=== PATIENT | male | born 1945 | race Caucasian/White ===

== ENCOUNTER 2024-04-09 00:22 | Inpatient (IN) | payer MEDICARE ==
[~2024-04-09] VITALS: Ht 167.6 cm; Wt 66.9 kg
[2024-04-09 01:36] LABS: BASOPHILS % 0.7 % (0.0-2.0); EOSINOPHILS % 0.2 % (0.0-5.0); HEMATOCRIT. 39.6 % (42.0-52.0); HEMOGLOBIN. 13.2 g/dL (14.0-18.0); LYMPHOCYTES % 10.7 % (20.0-50.0); MEAN CORPUSCULAR HEMOGLOBIN 30.6 pg (28.0-32.0); MEAN CORPUSCULAR HGB CONC 33.4 g/dL (31.0-37.0); MEAN CORPUSCULAR VOLUME 91.4 fL (80.0-94.0); MEAN PLATELET VOLUME 8.4 fl (7.4-10.4); MONOCYTES % 10.5 % (2.0-8.0); NEUTROPHILS % 77.9 % (40.0-76.0); PLATELET 343 x1000/uL (130-400); RED BLOOD CELL COUNT 4.34 mill/uL (4.7-6.1); RED CELL DISTRIBUTION WIDTH 14.5 % (11.6-14.6); WHITE BLOOD COUNT 9.2 x1000/uL (4.5-11.0)
[2024-04-09 01:42] LABS: CHLORIDE 97 mEq/L (98-107); POTASSIUM 4.3 mEq/L (3.5-5.1); SODIUM 133 mEq/L (136-145)
[2024-04-09 01:43] LABS: CALCIUM 9.3 mg/dL (8.7-10.4); CARBON DIOXIDE 28 mEq/L (21-32)
[2024-04-09 01:48] LABS: CREATININE 0.9 mg/dL (0.6-1.3); GLUCOSE 124 mg/dL (70-105); UREA NITROGEN BLOOD 16 mg/dL (9-23)
[2024-04-09 01:50] LABS: TROPONIN I HIGH SENSITIVITY 5 ng/L (3.0-53)
[2024-04-09 04:13] LABS: PROTHROMBIN TIME 11.2 sec (9.6-11.0)
[2024-04-09] MEDS: MORPHINE SULFATE 4 MG/ML INJ (FOR IV/IM USE) IV ONE (04:30)
[2024-04-09] MEDS: ENOXAPARIN 80MG/0.8ML SYR SUBCUT NR (04:32)
[2024-04-09] MEDS: IOHEXOL-350 100 ML BOTTLE ONE (06:20)
[2024-04-09] MEDS ORDERED: DOCUSATE SODIUM 100MG CAPSULE PO PRN (08:15)
[2024-04-09] MEDS ORDERED: ACETAMINOPHEN 325MG TABLET PO PRN (08:15)
[2024-04-09] MEDS ORDERED: CLONIDINE 0.1MG TABLET PO PRN (08:15)
[2024-04-09] MEDS ORDERED: IPRATROPIUM/ALBUTEROL 0.5-3(2.5)MG/3ML NEB HHN PRN (08:15)
[2024-04-09] MEDS ORDERED: GUAIFENESIN 200MG/10ML SUGAR FREE UDC PO PRN (08:15)
[2024-04-09] MEDS ORDERED: MAGNESIUM/ALUMINUM HYDROXIDE/SIMETHICONE 30ML UDC PO PRN (08:15)
[2024-04-09] MEDS ORDERED: NITROGLYCERIN 0.4MG TABLET SL SL PRN (08:45)
[2024-04-09] MEDS ORDERED: ZOLPIDEM TARTRATE 5MG TABLET PO PRN (08:45)
[2024-04-09 09:00] VITALS: BP 148/76; PULSE 84; RESP 21; RESP 28; TEMP 98.2; TEMP 98.6
[2024-04-09 12:00] VITALS: BP 122/66; PULSE 100; RESP 32; TEMP 98.5
[2024-04-09] MEDS: MEROPENEM 1G/100ML 100 ML IV SCH (12:29)
[2024-04-09] MEDS: VANCOMYCIN 1.25GM PMX (XELLIA) 250 ML IV SCH (12:29)
[2024-04-09] MEDS: FAMOTIDINE 20MG TABLET PO SCH (12:31)
[2024-04-09] MEDS: ASPIRIN 81MG EC TABLET PO SCH (12:31)
[2024-04-09 12:44] LABS: CLARITY URINE TURBID (CLEAR); COLOR URINE YELLOW (YELLOW); GLUCOSE URINE NEGATIVE (NEGATIVE); KETONES URINE NEGATIVE (NEGATIVE); LEUKOCYTE ESTERASE URINE 3+ (NEGATIVE); NITRITE URINE NEGATIVE (NEGATIVE); OCCULT BLOOD URINE 2+ (NEGATIVE); PH URINE 7.5 (4.5-8.0); PROTEIN URINE 2+ (NEGATIVE); SPECIFIC GRAVITY URINE 1.031 (1.005-1.030); UROBILINOGEN URINE 0.2 E.U./dL (0.2-1.0)
[2024-04-09 12:58] LABS: WBC URINE TNTC /hpf (0-2)
[2024-04-09 13:02] LABS: BACTERIA URINE 4+; RBC URINE 15-25 /hpf (0-2); SQUAMOUS EPITHELIAL CELL URINE NONE SEEN /lpf (RARE/1+); YEAST URINE NONE SEEN
[2024-04-09 13:28] LABS: *AMPHETAMINES SCREEN URINE NEGATIVE (NEGATIVE); *BARBITURATES SCREEN URINE NEGATIVE (NEGATIVE); *BENZODIAZEPINES SCREEN URINE NEGATIVE (NEGATIVE); *COCAINE SCREEN URINE NEGATIVE (NEGATIVE); METHADONE URINE SCREEN NEGATIVE (NEGATIVE); OPIATES URINE SCREEN PRESUMPTIVE POSITIVE (NEGATIVE)
[2024-04-09 13:29] LABS: CANNABINOID URINE SCREEN NEGATIVE (NEGATIVE); ECSTASY MDMA SCREEN URINE NEGATIVE (NEGATIVE); PHENCYCLIDINE URINE SCREEN NEGATIVE (NEGATIVE)
[2024-04-09 16:00] VITALS: BP 155/74; PULSE 66; RESP 20; TEMP 97.6
[2024-04-09 16:25] LABS: CREATINE KINASE 236 IU/L (46-171)
[2024-04-09 16:26] LABS: CREATINE KINASE MB FRACTION 6.3 ng/mL (0.5-3.6); TROPONIN I HIGH SENSITIVITY 6 ng/L (3.0-53)
[2024-04-09 20:00] VITALS: BP 138/69; PULSE 88; RESP 22; TEMP 98
[2024-04-09] MEDS: ENOXAPARIN 40MG/0.4ML SYR SUBCUT SCH (20:43)
[2024-04-10] VITALS: BP 146/70; PULSE 95; TEMP 97.8
[2024-04-10] MEDS: MEROPENEM 1G/100ML 100 ML IV SCH (00:40)
[2024-04-10 00:58] LABS: CREATINE KINASE MB FRACTION 5.8 ng/mL (0.5-3.6)
[2024-04-10 04:00] VITALS: BP 106/51; PULSE 86; RESP 17; TEMP 98.1
[2024-04-10 06:26] LABS: BASOPHILS % 1.2 % (0.0-2.0); EOSINOPHILS % 4.1 % (0.0-5.0); HEMATOCRIT. 33.9 % (42.0-52.0); HEMOGLOBIN. 11.6 g/dL (14.0-18.0); LYMPHOCYTES % 18.7 % (20.0-50.0); MEAN CORPUSCULAR HEMOGLOBIN 31.1 pg (28.0-32.0); MEAN CORPUSCULAR HGB CONC 34.1 g/dL (31.0-37.0); MEAN CORPUSCULAR VOLUME 91.3 fL (80.0-94.0); MEAN PLATELET VOLUME 9.5 fl (7.4-10.4); MONOCYTES % 11.5 % (2.0-8.0); NEUTROPHILS % 64.5 % (40.0-76.0); PLATELET 230 x1000/uL (130-400); RED BLOOD CELL COUNT 3.72 mill/uL (4.7-6.1); RED CELL DISTRIBUTION WIDTH 14.6 % (11.6-14.6); WHITE BLOOD COUNT 7.8 x1000/uL (4.5-11.0)
[2024-04-10 06:41] LABS: CARBON DIOXIDE 26 mEq/L (21-32); CHLORIDE 106 mEq/L (98-107); POTASSIUM 4.3 mEq/L (3.5-5.1); SODIUM 137 mEq/L (136-145)
[2024-04-10 06:42] LABS: CALCIUM 8.8 mg/dL (8.7-10.4)
[2024-04-10] MEDS: VANCOMYCIN 750MG PREMIX 150 ML IV SCH (06:44)
[2024-04-10 06:46] LABS: CREATININE 0.6 mg/dL (0.6-1.3)
[2024-04-10 06:47] LABS: GLUCOSE 86 mg/dL (70-105); UREA NITROGEN BLOOD 10 mg/dL (9-23)
[2024-04-10 06:51] LABS: T4 FREE 1.26 ng/dL (0.89-1.76); THYROID STIMULATING HORMONE 1.34 uIU/mL (0.55-4.78)
[2024-04-10 08:00] VITALS: BP 103/57; PULSE 70; RESP 23; TEMP 98.3
[2024-04-10] MEDS: ACETAMINOPHEN 325MG TABLET PO PRN (09:27)
[2024-04-10 12:00] VITALS: BP 112/75; PULSE 76; RESP 17; TEMP 98.5
[2024-04-10 16:00] VITALS: BP 114/66; PULSE 61; RESP 19; TEMP 98.5
[2024-04-10 20:05] VITALS: BP 127/70; PULSE 71; RESP 19; TEMP 97.3
[2024-04-11] VITALS (7 sets, daily range): BP systolic 105–125; BP diastolic 53–72; PULSE 56–80; RESP 17–24; TEMP 97.3–98.3
[2024-04-11 04:56] LABS: BASOPHILS % 1.3 % (0.0-2.0); EOSINOPHILS % 6.8 % (0.0-5.0); HEMATOCRIT. 32.7 % (42.0-52.0); LYMPHOCYTES % 21.8 % (20.0-50.0); MEAN CORPUSCULAR HEMOGLOBIN 30.6 pg (28.0-32.0); MEAN CORPUSCULAR HGB CONC 33.5 g/dL (31.0-37.0); MEAN CORPUSCULAR VOLUME 91.3 fL (80.0-94.0); MEAN PLATELET VOLUME 9.5 fl (7.4-10.4); MONOCYTES % 11.4 % (2.0-8.0); NEUTROPHILS % 58.7 % (40.0-76.0); PLATELET 254 x1000/uL (130-400); RED BLOOD CELL COUNT 3.58 mill/uL (4.7-6.1); RED CELL DISTRIBUTION WIDTH 14.1 % (11.6-14.6); WHITE BLOOD COUNT 7.3 x1000/uL (4.5-11.0)
[2024-04-11 05:09] LABS: CALCIUM 8.7 mg/dL (8.7-10.4); CHLORIDE 105 mEq/L (98-107); POTASSIUM 3.9 mEq/L (3.5-5.1); SODIUM 138 mEq/L (136-145)
[2024-04-11 05:10] LABS: CARBON DIOXIDE 29 mEq/L (21-32)
[2024-04-11 05:15] LABS: CREATININE 0.6 mg/dL (0.6-1.3); GLUCOSE 88 mg/dL (70-105); UREA NITROGEN BLOOD 9 mg/dL (9-23); VANCOMYCIN TROUGH 12.8 ug/mL (5.0-10.0)
[2024-04-12 00:33] VITALS: BP 105/65; PULSE 81; RESP 20; TEMP 98.8
[2024-04-12 04:57] VITALS: BP 113/61; PULSE 82; RESP 19; TEMP 98.2
[2024-04-12 08:00] VITALS: BP 123/64; PULSE 70; RESP 18; TEMP 98.1
[2024-04-12 12:00] VITALS: BP 122/64; PULSE 68; RESP 19; TEMP 98.6
[2024-04-12 16:00] VITALS: BP 114/67; PULSE 79; RESP 22; TEMP 98.2
[2024-04-12 20:00] VITALS: BP 130/78; RESP 18; TEMP 98.8
[2024-04-13] VITALS: BP 102/52; PULSE 85; RESP 19; TEMP 98
[2024-04-13 04:00] VITALS: BP 105/60; PULSE 84; RESP 20; TEMP 98.5
[2024-04-13 08:00] VITALS: BP 116/70; PULSE 71; RESP 22; TEMP 97.9
[2024-04-13] MEDS ORDERED: CEFAZOLIN 1000MG PREMIX 50 ML IV SCH (11:30)
[2024-04-13 12:00] VITALS: BP 125/79; PULSE 77; RESP 21; TEMP 98
[2024-04-13 16:00] VITALS: BP 104/78; PULSE 74; RESP 23; TEMP 98.2
[2024-04-13] MEDS: POLYETHYLENE GLYCOL 3350 (17GM) 1 DOSE PACK PO SCH (18:57)
[2024-04-13 20:00] VITALS: BP 124/69; PULSE 72; RESP 29; TEMP 97.8
[2024-04-13] MEDS: SENNOSIDES 8.6MG TABLET PO SCH (20:16)
[2024-04-13] MEDS: SULFAMETHOXAZOLE/TRIMETHOPRIM 800/160MG TABLET PO SCH (20:16)
[2024-04-14] VITALS: BP 116/58; PULSE 72; RESP 18; TEMP 98
[2024-04-14 04:00] VITALS: PULSE 61; RESP 16
[2024-04-14 04:40] VITALS: BP 106/58; PULSE 73; RESP 22; TEMP 97.8
[2024-04-14 08:00] VITALS: BP 116/85; PULSE 90; RESP 20; TEMP 98
[2024-04-14 12:00] VITALS: BP 127/69; PULSE 87; RESP 20; TEMP 98.3
[2024-04-14 20:00] VITALS: BP 123/61; PULSE 83; RESP 18; TEMP 98.5
[2024-04-15] VITALS (8 sets, daily range): BP systolic 112–136; BP diastolic 64–91; PULSE 65–92; RESP 16–23; TEMP 97.8–98.6; O2SAT 98
== END 2024-04-16 00:20 | DRG 551 ==
LOC: ER 00:22 → 3WST 04:10 → EDBEDREQ 04:44
PROVIDERS: ADMIT Internal Medicine; ATTEND Internal Medicine
DX: S32.038A Other fracture of third lumbar vertebra, initial encounter for closed fracture (principal); L89.153 Pressure ulcer of sacral region, stage 3; K59.2 Neurogenic bowel, not elsewhere classified; G82.20 Paraplegia, unspecified; E87.1 Hypo-osmolality and hyponatremia; N39.0 Urinary tract infection, site not specified; R16.0 Hepatomegaly, not elsewhere classified; K76.0 Fatty (change of) liver, not elsewhere classified; D64.9 Anemia, unspecified; N31.9 Neuromuscular dysfunction of bladder, unspecified; K80.20 Calculus of gallbladder without cholecystitis without obstruction; D18.03 Hemangioma of intra-abdominal structures; R53.81 Other malaise; G89.29 Other chronic pain; F41.9 Anxiety disorder, unspecified; Z93.3 Colostomy status; Z99.3 Dependence on wheelchair; Z98.1 Arthrodesis status; Z79.82 Long term (current) use of aspirin; X58.XXXA Exposure to other specified factors, initial encounter; Y93.89 Activity, other specified; Y92.89 Other specified places as the place of occurrence of the external cause; Y99.8 Other external cause status
CPT/HCPCS: 36415; 71045; 71275; 72148; 74018; 80048; 80202; 80305; 81003; 82550; 82553; 83880; 84439; 84443; 84484; 85025; 85379; 87077; 87186; 93005; 93970; 97110; 97112; 97162; 97166; 97530; 99285; A6261; J1650; J2185; J2270; J3370; Q9967